=== PATIENT | female | born 1955 | race Caucasian/White ===

== ENCOUNTER 2023-12-22 17:39 | Emergency (ER) | payer MEDICARE, SELFPAY ==
--- NOTE | ~2023-12-22 | XR_ITS ---
EXAM: XR foot RT min 3V DATE: 12/22/2023 18:08 HISTORY: STUBBED FOOT, PAIN RT FOOT . COMPARISON: None available. FINDINGS: Decreased mineralization. Oblique, intra-articular, mildly distracted fracture of the medi al and proximal corner of the right fifth proximal phalange. No lytic or blastic lesion. Moderate fir st MTP osteoarthritis. Moderate Achilles and mild plantar enthesopathy. No erosion or periosteal maldonado ge. Soft tissues within normal limits. IMPRESSION: Osteopenia. Oblique, intra-articular, mildly distracted fracture of the medial corner of the right fifth proximal phalange. Reviewed, dictated and finalized at location K.
[2023-12-22 17:45] VITALS: BP 151/52; PULSE 61; RESP 16; TEMP 36.5; O2SAT 97
[2023-12-22 18:16] VITALS: BP 151/52; PULSE 61; RESP 16; TEMP 36.5; O2SAT 97
--- NOTE | 2023-12-22 18:47 | ED.GENADULT ---
HPI - General Adult General Chief complaint: Extremity Injury, Lower Stated complaint: Right Foot/Toe Injury Source: patient Mode of arrival: ambulatory Limitations: no limitations History of Present Illness HPI narrative: Patient presents for evaluation of pain in the 5th digit of the right foot. Symptom onset 8 days ago. She stubbed her toe against a clothing rack while not wearing shoes. She has experience 5/10 pain in the affected area since that time. She now has bruising in the 3rd and 2nd digits of the right foot. Denies any pain in those digits. She is able to ambulate and bear weight but prolonged ambulation causes worsening pain. She took tramadol for pain which seemed to help. She also tried Tylenol which did not. No paresthesias. Related Data Home Medications Medication Instructions Recorded Confirmed Deisy 12/22/23 Vitamin D 12/22/23 amlodipine 5 mg tablet mg 12/22/23 esomeprazole magnesium 40 mg mg 12/22/23 capsule,delayed release nortriptyline 10 mg capsule mg 12/22/23 rosuvastatin 5 mg tablet mg 12/22/23 tramadol 50 mg tablet mg 12/22/23 venlafaxine 75 mg capsule,extended mg PO 12/22/23 release 24 hr zolpidem 10 mg tablet mg 12/22/23 Allergies Allergy/AdvReac Type Severity Reaction Status Date / Time No Known Allergies Allergy Verified 12/22/23 17:51 Review of Systems Review of Systems: CONSTITUTIONAL: Denies fever, chills, or sweats. EYES: Denies visual changes, redness, or discharge. ENT: Denies rhinorrhea, congestion, sore throat, or otalgia. CARDIOVASCULAR: Denies chest pain, palpitations, or edema. RESPIRATORY: Denies cough or dyspnea. GASTROINTESTINAL: Denies abdominal pain, nausea, vomiting, or diarrhea. GENITOURINARY: Denies dysuria or hematuria. SKIN: Reports bruising in the 2nd and 3rd digits the right MUSCULOSKELETAL: Reports pain in the fifth digit of the right foot. NEUROLOGIC: Denies headache, numbness, dizziness, or weakness. PSYCHIATRIC: Denies anxiety or depression. [facility] Past Medical History Medical History GERD (gastroesophageal reflux disease) Hyperlipidemia Hypertension Insomnia Surgical History Surgical History History of bunionectomy Family History Family History Mother Family history non-contributory Social History Social History Substance use: never Living arrangements: with family Gender identity (if verbalized by the patient): Female Sexual Orientation (if Verbalized by the Patient): Straight or Heterosexual Spiritual care concerns: No Exam Narrative: GENERAL: Well-appearing, well-nourished, and in no acute distress. HEAD: Normocephalic, atraumatic. EYES: PERRLA and EOMI. ENT: Nares clear, no rhinorrhea or epistaxis. Mucous membranes moist. Oropharynx without tonsillar hypertrophy exudate or other lesions. Bilateral TMs pearly styles nonbulging NECK: Supple. No adenopathy or masses. No carotid bruits or JVD CHEST: Clear to auscultation. No respiratory distress. No wheezes rales or rhonchi HEART: Regular rate and rhythm. No murmur heard. Normal peripheral pulses. ABDOMEN: Soft, nontender, nondistended, normal active bowel sounds. EXTREMITIES: Tenderness and proximal phalanx of 5th digit of the right foot. Able to wiggle all digits of the right foot. No tenderness in 2nd or 3rd digits of the left foot SKIN: Ecchymosis noted to the 2nd and 3rd digits of the right foot NEURO: No focal deficits. Alert and oriented x3. PSYCH: Normal mood and affect. Course Course Emergency Course: This is a 68-year-old female who presented for evaluation of pain in the 5th digit of the right foot after an injury 8 days ago. X-ray showed proximal phalanx fracture. Fourth and 5th digits w
== END 2023-12-22 18:50 | disposition home or self-care (01) ==
PROVIDERS: Emergency Provider Nurse Practitioner; PCP Nurse Practitioner Family
DX: S92.511A Displaced fracture of proximal phalanx of right lesser toe(s), initial encounter for closed fracture (principal); E78.5 Hyperlipidemia, unspecified; I10 Essential (primary) hypertension; W22.09XA Striking against other stationary object, initial encounter
CPT/HCPCS: 73630; 99214; G0463